=== PATIENT | male | born 1995 | race Asian ===

== ENCOUNTER 2019-12-13 22:52 | Emergency (ER) | payer OTHER ==
[~2019-12-13] VITALS: Ht 182.9 cm; Wt 95.5 kg
[2019-12-13] MEDS ORDERED: HYDROcodone/acetaminophen 5mg/325mg tablet PO ONE (23:20)
[2019-12-13] MEDS ORDERED: HYDR-3965 PO (23:22)
[2019-12-13 23:31] VITALS: BP 131/82
== END 2019-12-13 23:32 | disposition home or self-care (01) ==
LOC: ER 22:53
DX: S42.001A Fracture of unspecified part of right clavicle, initial encounter for closed fracture (principal); S00.03XA Contusion of scalp, initial encounter; Z79.899 Other long term (current) drug therapy; V00.131A Fall from skateboard, initial encounter; Y93.89 Activity, other specified; Y92.89 Other specified places as the place of occurrence of the external cause; Y99.8 Other external cause status
CPT/HCPCS: 73030; 99284